=== PATIENT | male | born 1990 | race Caucasian/White ===

== ENCOUNTER 2024-01-24 06:58 | Emergency (ER) | payer OTHER ==
[~2024-01-24] VITALS: Ht 175.3 cm; Wt 89.1 kg
[~2024-01-24 06:58] MED LIST: AMOXICILLIN500 MG PO; NORCO 5-325 TA1 EACH PO
[2024-01-24] MEDS ORDERED: ESCITALOPRAM OX10 MG PO (07:08)
[2024-01-24] MEDS ORDERED: CLINDAMYCIN HC150 MG PO (07:30)
[2024-01-24] MEDS ORDERED: clindamycin HCL 300 MG CAP PO ONE (07:30)
[2024-01-24 07:38] VITALS: BP 133/73
== END 2024-01-24 07:40 | disposition home or self-care (01) ==
LOC: ED 06:58
DX: L03.114 Cellulitis of left upper limb (principal); Z88.2 Allergy status to sulfonamides; Z88.1 Allergy status to other antibiotic agents; Z79.899 Other long term (current) drug therapy
CPT/HCPCS: 99283

== ENCOUNTER 2024-04-01 02:00 | Emergency (ER) | payer OTHER ==
[~2024-04-01] VITALS: Ht 175.3 cm; Wt 97.2 kg
[~2024-04-01 02:00] MED LIST changes: +CLINDAMYCIN HC150 MG PO; +ESCITALOPRAM OX10 MG PO
[2024-04-01] MEDS ORDERED: OMEPRAZOLE20 MG (02:09)
[2024-04-01] MEDS ORDERED: CYCLOBENZAPRINE5 MG (02:09)
[2024-04-01] MEDS ORDERED: KETOROLAC TROMETHAMINE 30 MG/ML VIAL IV ONE (02:15)
[2024-04-01 02:20] LABS: BASOPHILS 1.2 % (0-2); EOSINOPHILS 4.3 % (0-6); HEMATOCRIT 48.9 % (35.0-50.0); LYMPHOCYTES 33.4 % (24-44); MCH 29.5 (27-36); MCHC 34.8 g/dl (30-36); MCV 84.8 fl (81-99); MONOCYTES 10.2 % (0-12); NEUTROPHILS 50.9 % (39-80); PLATELET COUNT 204 K/uL (140-440); RBC 5.76 M/ul (4.3-5.7); RDW 13.7 (10.5-15.0)
[2024-04-01 02:31] LABS: ALBUMIN/GLOBULIN RATIO 1.05 (1.1-2.4); ANION GAP 13.7 (7-21); BILIRUBIN, TOTAL 0.5 ng/dL (0.2-1.0); BUN/CREATININE RATIO 11.53 (6.0-28.6); CREATININE, SERUM 1.04 mg/dL (0.70-1.30); POTASSIUM 3.7 mmol/L (3.5-5.1); PROTEIN, TOTAL 7.8 g/dL (6.4-8.2)
[2024-04-01] MEDS ORDERED: PREDNISONE20 MG PO (03:37)
[2024-04-01 03:46] VITALS: BP 117/85
--- NOTE | 2024-04-01 19:46 | EKG ---
[facility] [address] [place], [place] [address] Signed Normal sinus rhythm Normal ECG No previous ECGs available Confirmed by Andressa Wesley MD ([id number]) on 04/01/2024 7:46:03 PM Electronically Signed By: ANDRESSA WESLEY MD 04/01/241945 PATIENT NAME: ANNMARIE LINDSAY Electrocardiogram DATE OF : 89 PHYSICIAN: ANDRESSA WESLEY MD REPORT #: [id number] REPORT IS CONFIDENTIAL AND NOT TO BE RELEASED WITHOUT AUTHORIZATION
== END 2024-04-01 03:52 | disposition home or self-care (01) ==
LOC: ED 02:00
PROVIDERS: Internal Medicine
DX: R09.1 Pleurisy (principal); Z88.2 Allergy status to sulfonamides; Z88.1 Allergy status to other antibiotic agents; Z79.899 Other long term (current) drug therapy
CPT/HCPCS: 36415; 71045; 80053; 83735; 84484; 85025; 85379; 93005; 93010; 96374; 99285-25; J1885